=== PATIENT | male | born 1990 | race Caucasian/White ===

== ENCOUNTER 2017-01-23 16:37 | Emergency (ER) | payer OTHER ==
[~2017-01-23] VITALS: Ht 170.2 cm; Wt 68.0 kg
[2017-01-23 16:40] VITALS: BP 126/86
[2017-01-23] MEDS ORDERED: ACETAMINOPHEN ES 500 MG TABLET ONE (16:42)
[2017-01-23] MEDS ORDERED: ACETAMINOPHEN ES 500 MG TABLET PO ONE (17:00)
--- NOTE | 2017-01-23 17:00 | NUR ---
PT, HERE FOR MEDICAL EVAL PRIOR TO BOOKING. MEDICALLY CLEARED. D/C TO PD IN STABLE CONDITION.
== END 2017-01-23 17:01 ==
LOC: ER 16:40
DX: S80.01XA Contusion of right knee, initial encounter (principal); Z76.5 Malingerer [conscious simulation]; M79.642 Pain in left hand; I10 Essential (primary) hypertension; F17.200 Nicotine dependence, unspecified, uncomplicated; W01.0XXA Fall on same level from slipping, tripping and stumbling without subsequent striking against object, initial encounter; Y92.89 Other specified places as the place of occurrence of the external cause; Y93.89 Activity, other specified; Y99.8 Other external cause status
CPT/HCPCS: 99283; A4606; Z7610